=== PATIENT | female | born 1985 | race Hispanic/Latino ===

== ENCOUNTER 2016-07-21 11:48 | Emergency (ER) | payer MEDICAID ==
[2016-07-21 12:25] VITALS: BP 119/75
[2016-07-21] MEDS ORDERED: TYLENOL #3 PO ONE (13:32)
--- NOTE | 2016-07-21 13:32 | Emergency Department Report ---
Upper Extremity - HPI Chief Complaint: Extremity Injury, Upper Stated Complaint: LT ARM PAIN Time Seen by Provider: 07/21/16 13:17 Upper Extremity: Left Forearm Occurred When: >5 Days (6 months) Severity: mild Symptoms: Yes Pain with Movement, Yes Deformity (small palpable lump approximately 1-2 cm left mid forearm), Yes Swelling (multiple palpable mobile lump beneath skin left midforearm), No Limited Range of Movement, No Numbness, No Weakness, No Bruising/Ecchymosis, No Laceration or Abrasion Other History: 30-year-old female past medical history smoking presents with complaint of 6 months of palpable lump to left midforearm. Denies any trauma denies any erythema denies any limited range of motion. 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 Patient states that she has been noticing the small growth in her left mid forearm for approximately 6 months ED Review of Systems ROS: Stated complaint: LT ARM PAIN Other details as noted in HPI Constitutional: denies: chills, fever Eyes: denies: eye pain, eye discharge, vision change ENT: denies: ear pain, throat pain Respiratory: denies: cough, shortness of breath, wheezing Cardiovascular: denies: chest pain, palpitations Endocrine: no symptoms reported Gastrointestinal: denies: abdominal pain, nausea, diarrhea Genitourinary: denies: urgency, dysuria, discharge Musculoskeletal: as per HPI. denies: back pain, joint swelling, arthralgia Skin: lesions (small palpable mobile mass left midforearm approximately 1-2 cm in diameter). denies: rash Neurological: denies: headache, weakness, paresthesias Psychiatric: denies: anxiety, depression Hematological/Lymphatic: denies: easy bleeding, easy bruising ED Past Medical Hx - Past Medical History Previous Medical History?: No - Surgical History Past Surgical History?: Yes Additional Surgical History: hysterectomy 2006 - Social History Smoking Status: Current Every Day Smoker Substance Use Type: Alcohol Upper Extremity Exam - Exam General: Vital signs noted. No distress. Alert and acting appropriately. Head and Torso: No HEENT Abnormality, No Neck Tenderness, No Chest/Lungs Abnormality, No Abdominal Tenderness, No Back Tenderness Shoulder Exam: Yes Normal Range of Motion in Shoulder, No Shoulder Tenderness, No Clavicle Tenderness, No Shoulder Deformity, No AC Joint Tenderness Arm Exam: No Arm/Humerus Tenderness, No Arm Deformity Elbow: No Elbow Tenderness, No Normal Range of Motion in Elbow, No Elbow Deformity Forearm: Yes Forearm Tenderness (see below description), Yes Forearm Deformity ( small palpable 1-2 cm forearm mass possibly lipoma versus ganglion cyst), No Pain with Pronation, No Pain with Supination Wrist: Yes Normal ROM in Wrist, No Wrist Tenderness, No Wrist Deformity, No Snuffbox Tenderness, No Pain with Axial Thumb Compression Hand: Yes Normal ROM in Digit(s), No Hand Tenderness, No Hand Deformity, No Digit Tenderness, No Digit(s) Deformity, No Tendon Dysfunction CMS Exam: No Broken Skin, No Normal Distal Pulses, No Normal Capillary Refill, No Normal Distal Sensation ED Course Vital Signs 07/21/16 12:18 Temperature 98.1 F Pulse Rate 71 Respiratory 16 Rate Blood Pressure 119/75 Blood Pressure 119/75 [Left] O2 Sat by Pulse 99 Oximetry ED Medical Decision Making - Medical Decision Making A/P: Ganglion cyst versus lipoma left midforearm 1-as patient states she has tried Motrin and naproxen with minimal relief and is allergic to Toradol will give patient trial of diclofenac. Distal extremity is neurovascularly intact distal pulses intact distal sensation intact range of motion is preserved and hand wrist forearm fingers elbow. No signs of infection. 2-follow-up with orthopedics Critical care attestation.: If time is entered above; I have spent that time in minutes in the direct care of this critically ill patient, excluding procedure time. ED Disposition Clinical Impression: Ganglion cyst Disposition: DISCHARGED TO HOME OR SELFCARE Is pt being admited?: No Does the pt Need Aspirin: No Condition: Stable Instructions: Lipoma (ED) Additional Instructions: [email or web address] Dr. Acosta [facility] [phone] Referrals: SEMAJ ACOSTA MD [Staff Physician] - 3-5 Days TRAY STOVALL MD [Staff Physician] - 3-5 Days [facility] [Outside] - 3-5 Days Forms: Accompanied Note, Work/School Release Form(ED) Time of Disposition: 14:31
--- NOTE | 2016-07-21 15:23 | XRay Report ---
LEFT FOREARM: History: Left forearm pain, mass. AP and lateral views of the forearm demonstrate normal mineralization and contours for this patient's age. No destructive changes are noted and the adjacent soft tissues are normal. IMPRESSION: Normal left forearm. No soft tissue mass is appreciated on x-ray.
== END 2016-07-21 14:43 | disposition home or self-care (01) ==
LOC: ED 11:48
DX: M67.40 Ganglion, unspecified site (principal); F17.200 Nicotine dependence, unspecified, uncomplicated